=== PATIENT | male | born 1965 | race Caucasian/White ===

== ENCOUNTER 2018-12-06 18:17 | Emergency (ER) | payer BC ==
[~2018-12-06] VITALS: Ht 175.3 cm; Wt 102.0 kg
[2018-12-06 18:23] VITALS: BP 141/96
[2018-12-06] MEDS ORDERED: DIAZ5TAB PO (18:40)
[2018-12-06] MEDS ORDERED: IBUP-1984 PO (18:40)
[2018-12-06] MEDS ORDERED: ketorolac trometh inj. 60 MG/2 ML VIAL IM ONE (18:40)
== END 2018-12-06 19:15 | disposition home or self-care (01) ==
LOC: ER 18:18
DX: S86.111A Strain of other muscle(s) and tendon(s) of posterior muscle group at lower leg level, right leg, initial encounter (principal); E03.9 Hypothyroidism, unspecified; Z79.899 Other long term (current) drug therapy; X58.XXXA Exposure to other specified factors, initial encounter; Y93.89 Activity, other specified; Y92.89 Other specified places as the place of occurrence of the external cause; Y99.8 Other external cause status
CPT/HCPCS: 96372; 99283; J1885